=== PATIENT | female | born 1960 | race Caucasian/White ===

== ENCOUNTER 2017-10-23 21:43 | Emergency (ER) | payer OTHER ==
[2017-10-23 21:47] VITALS: PULSE 78; RESP 20; TEMP 98.9; O2SAT 99
--- NOTE | 2017-10-23 22:05 | C.PDOC ---
History Of Present Illness 57 year old female presents to the ED c/o left knee pain and swelling that started today. Patient reports that today at work she slipped on a wet surface and landed on her left knee. Patient states she is unable to put weight on her knee or move it. Patient denies LOC, headache, nausea, vomit, LOC, weakness, numbness. Time Seen by Provider: 10/23/17 21:51 Chief Complaint (Nursing): Lower Extremity Problem/Injury History Per: Patient History/Exam Limitations: no limitations Onset/Duration Of Symptoms: Hrs Current Symptoms Are (Timing): Still Present Recent travel outside of the [place]: No Additional History Per: Patient - Knee Description Of Injury: Fell Currently Unable To: Bear Weight, Bend Or Move Past Medical History Reviewed: Historical Data, Nursing Documentation, Vital Signs Vital Signs: Last Vital Signs Temp 98.9 F 10/23/17 21:45 Pulse 78 10/23/17 21:45 Resp 20 10/23/17 21:45 BP 124/73 10/24/17 00:23 Pulse Ox 99 10/24/17 00:26 - Medical History PMH: Hypercholesterolemia Surgical History: Cholecystectomy, Family History: States: Unknown Family Hx - Social History Hx Alcohol Use: No Hx Substance Use: No - Immunization History Hx Tetanus Toxoid Vaccination: No Hx Influenza Vaccination: No Hx Pneumococcal Vaccination: No Review Of Systems Constitutional: Negative for: Fever, Chills Cardiovascular: Negative for: Chest Pain Respiratory: Negative for: Shortness of Breath Gastrointestinal: Negative for: Nausea, Vomiting, Abdominal Pain Musculoskeletal: Positive for: Leg Pain Skin: Negative for: Rash Neurological: Negative for: Weakness, Numbness Physical Exam - Physical Exam Appears: Non-toxic, No Acute Distress Skin: Normal Color, Warm, Dry Head: Atraumatic, Normacephalic Eye(s): bilateral: Normal Inspection Oral Mucosa: Moist Neck: Normal ROM, No Midline Cervical Tenderness, Supple Chest: Symmetrical Cardiovascular: Rhythm Regular Respiratory: Normal Breath Sounds, No Rales, No Rhonchi, No Wheezing Extremity: No Normal ROM (left knee due to pain), Tenderness (medial left knee) , Capillary Refill (< 2 seconds), Swelling (left knee medial suprapatellarr effusion) Pulses: Left Dorsalis Pedis: Normal, Right Dorsalis Pedis: Normal Neurological/Psych: Oriented x3, Normal Speech, Normal Motor, Normal Sensation Gait: Halting ED Course And Treatment O2 Sat by Pulse Oximetry: 99 (ON RA) Pulse Ox Interpretation: Normal - Other Rad Left knee X-ray X-Ray: Read By Radiologist Interpretation: EXAM: XR Left Knee, 3 Views. EXAM DATE/TIME: 10/23/2017 10:28 PM. CLINICAL HISTORY: 57 years old, female; Pain; Knee; Left; Additional info : Fell on knee. TECHNIQUE: XR Left knee 3 views. COMPARISON: No relevant prior studies available. FINDINGS: No fractures. No dislocations. No osseous lesions. Irregularity of the tibial plateau posterior to the intercondylar notch however it appears well corticated. without sharp edges to suggest acute fracture. A rounded ossification noted in the popliteal soft tissues. IMPRESSION: No acute findings. Thank you for allowing us to participate in the care of your patient. Dictated and Authenticated by: Prachi Jimenez MD. 10/24/2017 12:14 AM Eastern Time ([place] & [place]) Medical Decision Making Medical Decision Making: Impression: left knee pain and swelling Plan: * Left knee x-Ray * Toradol 30 mg IM * Knee immobilizer Disposition Counseled Patient/Family Regarding: Studies Performed, Diagnosis, Need For Followup, Rx Given - Disposition Referrals: Farhat Fuentes III, MD [Staff Provider] - Disposition: HOME/ ROUTINE Disposition Time: 00:23 Condition: IMPROVED Additional Instructions: Ibuprofeno 600 mg por va oral cada 6 horas para el dolor. Use inmovilizador de rodilla sj el da para mayor comodidad. Use muletas para mayor comodidad. Taylor un seguimiento con un ortopedista en la prxima semana: solicite gutierrez designacin. El fro se comprime en la rodilla sj 20 minutos a la vez 4 veces al da. Instructions: Internal Derangement of the Knee (DC) Forms: Gen Discharge Inst Tajik, [facility] (Tajik), Work Excuse Print Language: FRENCH - Clinical Impression Clinical Impression: Injury of left knee - PA / HOG OPERATOR / Resident Statement MD/DO has reviewed & agrees with the documentation as recorded. - Scribe Statement The provider has reviewed the documentation as recorded by the Scribe Eyad Green All medical record entries made by the Scribe were at my direction and personally dictated by me. I have reviewed the chart and agree that the record accurately reflects my personal performance of the history, physical exam, medical decision making, and the department course for this patient. I have also personally directed, reviewed, and agree with the discharge instructions and disposition.
[2017-10-24 00:23] VITALS: BP 124/73
--- NOTE | 2017-10-24 12:44 | RAD ---
Date of service: 10/23/2017 PROCEDURE: Left Knee Radiographs. HISTORY: Pain. COMPARISON: None. FINDINGS: BONES: Questionable small ossific fragment superior to the fibular head on the lateral view. Additional irregularity of the posterior tibial plateau on the lateral view. JOINTS: Unremarkable. JOINT EFFUSION: Small to moderate joint effusion. OTHER FINDINGS: None. IMPRESSION: Questionable small ossific fragments superior to the humeral head on the lateral view. This does not necessarily appear corticated ; acute fracture cannot be excluded. Irregularity of the posterior tibial plateau which does appear corticated. Small to moderate joint effusion. ER notification submitted electronically.
== END 2017-10-24 00:38 | disposition home or self-care (01) ==
LOC: C.ER 21:43
DX: S89.92XA Unspecified injury of left lower leg, initial encounter (principal); W01.0XXA Fall on same level from slipping, tripping and stumbling without subsequent striking against object, initial encounter; E78.00 Pure hypercholesterolemia, unspecified
CPT/HCPCS: 73562; 96372; 99285; J1885

== ENCOUNTER 2017-10-29 14:41 | Emergency (ER) | payer OTHER ==
[2017-10-29 14:54] VITALS: BP 137/82; PULSE 80; RESP 18; TEMP 98.2; O2SAT 100
--- NOTE | 2017-10-29 16:12 | CT ---
Date of service: 10/29/2017 PROCEDURE: LEFT KNEE CT WITHOUT CONTRAST HISTORY: pain, trauma COMPARISON: Left knee radiographs 10/23/2017. TECHNIQUE: A volumetric CT acquisition was performed through the left knee without intravenous contrast with reformatted datasets provided sagittal axial and coronal planes. Contrast Dose: None Radiation dose:Total exam DLP = 471.65 mGy-cm. This CT exam was performed using one or more of the following dose reduction techniques: Automated exposure control, adjustment of the mA and/or kV according to patient size, and/or use of iterative reconstruction technique. FINDINGS: There is comminuted fracture of the medial and lateral tibial plateaus posteriorly as they approach the tibial spines. No impaction is appreciated. No dislocation. The tibial plateaus are not depressed. No additional fracture identified including the distal femur and proximal fibula left leg. Limited local soft tissue edema is identified and mild hemarthrosis seen at the suprasellar bursa. Normal patella. IMPRESSION: Comminuted nondisplaced fracture of the medial and lateral tibial plateaus as they approach the tibial spines left knee. The visualized femur and fibula appear intact swells the patella.
--- NOTE | 2017-10-29 16:47 | C.PDOC ---
History Of Present Illness 57 year old female patient presents to the ER with complaints of left knee pain s/p slipped and fell on her knee at work on 10/23/17. AT the time pt came to [facility] , was evaluated with negative XR and discharged with immobilizer and crutches. Patient was called back yesterday for possible fracture. Patient notes pain still persists. Patient denies new trauma, change in sensation, calf pain, or sob. Time Seen by Provider: 10/29/17 14:46 Chief Complaint (Nursing): Lower Extremity Problem/Injury History Per: Patient History/Exam Limitations: no limitations Onset/Duration Of Symptoms: Days Current Symptoms Are (Timing): Still Present - Knee Description Of Injury: Fell Currently Unable To: Bear Weight Past Medical History Reviewed: Historical Data, Nursing Documentation, Vital Signs Vital Signs: Last Vital Signs Temp 98.2 F 10/29/17 14:52 Pulse 80 10/29/17 14:52 Resp 18 10/29/17 14:52 BP 137/82 10/29/17 14:52 Pulse Ox 100 10/29/17 17:25 - Medical History PMH: Hypercholesterolemia Surgical History: Cholecystectomy, Family History: States: Unknown Family Hx - Social History Hx Alcohol Use: No Hx Substance Use: No - Immunization History Hx Tetanus Toxoid Vaccination: No Hx Influenza Vaccination: No Hx Pneumococcal Vaccination: No Review Of Systems Except As Marked, All Systems Reviewed And Found Negative. Constitutional: Negative for: Other (new trauma; calf pain) Neurological: Negative for: Other (change in sensation) Physical Exam - Physical Exam Appears: Well, Non-toxic, No Acute Distress Skin: Normal Color, Warm, Dry Head: Atraumatic, Normacephalic Eye(s): bilateral: Normal Inspection, EOMI Nose: Normal Oral Mucosa: Moist Neck: Normal ROM, Supple Chest: Symmetrical Respiratory: No Accessory Muscle Use, Other (speaking in full sentences) Extremity: No Normal ROM (decreased secondary to pain), Tenderness (dorsal aspect of knee), Capillary Refill (<2 sec), Swelling Pulses: Left Dorsalis Pedis: Normal, Right Dorsalis Pedis: Normal Neurological/Psych: Oriented x3, Normal Speech, Normal Sensation ED Course And Treatment O2 Sat by Pulse Oximetry: 100 (RA) Pulse Ox Interpretation: Normal - CT Scan/US Knee CT Other Rad Studies (CT/US): Read By Radiologist, Radiology Report Reviewed CT/US Interpretation: Research Associate : Luis Carlos Long MD. Approver2 : Report Date : 10/29/2017 16:10:49. My Comment : . Date of service: 10/29/2017. PROCEDURE: LEFT KNEE CT WITHOUT CONTRAST. HISTORY: pain, trauma. COMPARISON : Left knee radiographs 10/23/2017. TECHNIQUE: A volumetric CT acquisition was performed through the left knee without intravenous contrast with reformatted datasets provided sagittal axial and coronal planes. Contrast Dose : None. Radiation dose:Total exam DLP = 471.65 mGy-cm. This CT exam was performed using one or more of the following dose reduction techniques: Automated exposure control, adjustment of the mA and/or kV according to patient size, and/or use of iterative reconstruction technique. FINDINGS: There is comminuted fracture of the medial and lateral tibial plateaus posteriorly as they approach the tibial spines. No impaction is appreciated. No dislocation. The tibial plateaus are not depressed. No additional fracture identified including the distal femur and proximal fibula left leg. Limited local soft tissue edema is identified and mild hemarthrosis seen at the suprasellar bursa. Normal patella. IMPRESSION: Comminuted nondisplaced fracture of the medial and lateral tibial plateaus as they approach the tibial spines left knee. The visualized femur and fibula appear intact swells the patella. Progress Note: Impression: 57 year old patient with tenderness to dorsal aspect of knee and swelling. Plans: -- CT scan of lower extremity. -- knee XR. Case discussed with Dr. Yadiel Thomas who instructs additonal XR and immobilizer. Patient advise to f/u in the office on Tuesday at 2pm. Pt was re-taught crutch walking and instructed strict non-weight bearing status to avoid any surgical intervention; Barrel Rifler Operator used to ensure understanding. Pt given orthro f/u and was instructed to rest and elevate. Pt verbalized understanding. Disposition - Disposition Referrals: Felipe Coulter MD [Staff Provider] - Disposition: HOME/ ROUTINE Disposition Time: 16:46 Condition: STABLE Additional Instructions: Follow up with bone doctor this week. Taylor un seguimiento con el mdico de los huesos esta semana. Instructions: Tibial Plateau Fracture (DC) Forms: [place] (Libyan) Print Language: MAORI - Clinical Impression Clinical Impression: Tibial plateau fracture, left - PA / BROADCAST SUPERVISOR / Resident Statement /DO has reviewed & agrees with the documentation as recorded. - Scribe Statement The provider has reviewed the documentation as recorded by the Lucy Lopez Do All medical record entries made by the Scribe were at my direction and personally dictated by me. I have reviewed the chart and agree that the record accurately reflects my personal performance of the history, physical exam, medical decision making, and the department course for this patient. I have also personally directed, reviewed, and agree with the discharge instructions and disposition.
--- NOTE | 2017-10-29 18:30 | RAD ---
Date of service: 10/29/2017 PROCEDURE: Left Knee Radiographs. HISTORY: Pain. COMPARISON: None. FINDINGS: BONES: No signal changes appreciated in fracture of the posterior margins of the proximal tibia with a medial lateral tibial plateaus join suggestive of a posterior cruciate ligament avulsion fracture. JOINTS: No subluxation or dislocation. JOINT EFFUSION: Pseudo bursa effusion identified likely reflecting hemarthrosis. OTHER FINDINGS: None. IMPRESSION: Nondisplaced avulsion type fracture at the PCL insertion posterior and midline proximal tibia as discussed above.
== END 2017-10-29 17:14 | disposition home or self-care (01) ==
LOC: C.ER 14:41
DX: S82.142D Displaced bicondylar fracture of left tibia, subsequent encounter for closed fracture with routine healing (principal); W01.0XXD Fall on same level from slipping, tripping and stumbling without subsequent striking against object, subsequent encounter